=== PATIENT | male | born 1945 | race African-American/Black ===

== ENCOUNTER 2016-10-16 09:21 | Outpatient (CLI) | payer MEDICARE ==
--- NOTE | 2016-10-16 12:52 | Ultrasound Report ---
ULTRASOUND ABDOMEN LIMITED INDICATION: Chronic viral hepatitis. COMPARISON: 04/09/2016. FINDINGS: Right upper quadrant ultrasound suggests mild diffuse hepatic coarsening without definite focal suspicious lesion or biliary dilatation. Grossly normal hepatic contours. No gallstones, pericholecystic fluid or positive sonographic Odonnell's sign. Gallbladder wall thickness is 1.8 mm. Common bile duct is 2.5 mm. Pancreas obscured due to bowel gas. Normal imaged IVC and abdominal aorta. Nonhydronephrotic right kidney estimated at 10.3 x 4.5 x 4.9 cm with cortical thickness of 1 cm. CONCLUSION: No acute right upper quadrant sonographic abnormality, as described. Thank you for the opportunity to participate in this patient's care.
== END 2016-10-16 09:22 | disposition home or self-care (01) ==
LOC: US 09:21
PROVIDERS: ATTEND Internal Medicine Gastroenterology
DX: B18.1 Chronic viral hepatitis B without delta-agent (principal)
CPT/HCPCS: 76705

== ENCOUNTER 2017-04-14 06:57 | Outpatient (CLI) | payer MEDICARE ==
--- NOTE | 2017-04-14 07:59 | Ultrasound Report ---
ULTRASOUND ABDOMEN LIMITED INDICATION: Hepatitis B. COMPARISON: 10/16/2016. FINDINGS: Right upper quadrant ultrasound again suggests mild diffuse hepatic coarsening without definite focal suspicious lesions or biliary dilatation. Preserved hepatic contours. Subtle gallbladder sludge now not excluded. No gallstones, pericholecystic fluid or positive sonographic Odonnell's sign. Gallbladder wall thickness is 2.5 mm. CBD is 3.8 mm. Visualized pancreas unremarkable, though tail slightly obscured due to bowel gas. Normal imaged IVC and abdominal aorta. Nonhydronephrotic 10.5 x 4.6 x 4.6 cm right kidney with cortical thickness of 1.4 cm. Couple of small nonspecific renal medullary echogenicities. CONCLUSION: No acute right upper quadrant sonographic abnormality with slight gallbladder sludge and coarse liver, as described. Thank you for the opportunity to participate in this patient's care.
== END 2017-04-14 06:58 | disposition home or self-care (01) ==
LOC: US 06:57
PROVIDERS: ATTEND Internal Medicine Gastroenterology
DX: B19.10 Unspecified viral hepatitis B without hepatic coma (principal)
CPT/HCPCS: 76705

== ENCOUNTER 2017-10-16 07:33 | Outpatient (CLI) | payer MEDICARE ==
[2017-10-16] MEDS ORDERED: KINEVAC IV ONE (10:45)
--- NOTE | 2017-10-16 11:34 | Ultrasound Report ---
ULTRASOUND ABDOMEN LIMITED: TECHNIQUE: Transabdominal ultrasound with color Doppler interrogation. HISTORY: right upper quadrant abdominal pain, hepatitis B. COMPARISON: 04/14/17. FINDINGS: LIVER: The liver is normal size and contour. The liver parenchyma has a slightly coarse echotexture suggesting nonspecific parenchymal liver disease. No focal liver mass is identified. BILIARY SYSTEM: Trace sludge in the gallbladder. No shadowing gallstones, wall thickening or surrounding fluid. The CBD measures 3 mm. PANCREAS: Obscured by bowel gas. RIGHT KIDNEY: Normal. PROXIMAL AORTA: Normal. ASCITES: None. IMPRESSION: Slightly coarse echotexture of the liver consistent with nonspecific parenchymal liver disease. No advanced cirrhotic changes or liver mass identified. Trace sludge in the gallbladder.
--- NOTE | 2017-10-16 13:01 | Nuclear Medicine Report ---
HEPATOBILIARY SCAN: History: Right upper quadrant pain. Following the injection of the radionuclide, serial scanning was obtained over the right upper quadrant. Initial imaging of the liver demonstrates a relatively normal activity pattern. Progressive concentration of the radionuclide in the bile ducts, with filling of both the gallbladder and small bowel, is identified within a normal time period. The gallbladder ejection fraction is within normal limits measuring 66%. The patient reports the same pain following the infusion of CCK. IMPRESSION: Normal biliary system. Symptomatology as described.
== END 2017-10-16 07:34 | disposition home or self-care (01) ==
LOC: US 07:33
PROVIDERS: ATTEND Internal Medicine Gastroenterology
DX: B19.10 Unspecified viral hepatitis B without hepatic coma (principal); R10.11 Right upper quadrant pain
CPT/HCPCS: 76705; 78227; A9537

== ENCOUNTER 2017-11-26 07:16 | Outpatient (CLI) | payer MEDICARE ==
[2017-11-26 08:08] LABS: Blood Urea Nitrogen 14 mg/dL (9-20)
--- NOTE | 2017-11-26 15:25 | Magnetic Resonance Report ---
MRI ABDOMEN WITH AND WITHOUT CONTRAST INDICATION: Unspecified viral hepatitis. COMPARISON: 05/06/2016 CT. FINDINGS: Multiplanar and multisequence MRI of the abdomen attempted before and after 12 ml MultiHance intravenously, though extremely limited due to motion artifact. Of multiple tiny hepatic hypodensities on CT, an approximately 4 mm identified on MRI in the posterior right hepatic lobe, axial series 3, image 11, too small to accurately characterize, though may represent a cyst. Solid organ MRI evaluation however suboptimal. No large gallstones suspected. No significant biliary or pancreatic duct dilation. No ascites or definite significant adenopathy. Nonhydronephrotic kidneys. Nonaneurysmal abdominal aorta. Grossly normal bowel, marrow and muscle signal. Clear visualized lung bases, though right hemidiaphragm may be slightly elevated. Postcontrast evaluation inadequate. CONCLUSION: Extremely limited/suboptimal abdominal MRI, as described. If hepatic or pancreatic evaluation warranted clinically, dedicated hepatic or pancreatic protocol CT may offer better visualization, given the limitations. Thank you for the opportunity to participate in this patient's care.
== END 2017-11-26 07:17 | disposition home or self-care (01) ==
LOC: MRI 07:16
PROVIDERS: ATTEND Internal Medicine
DX: B19.10 Unspecified viral hepatitis B without hepatic coma (principal)
CPT/HCPCS: 36415; 74183; 82565; 84520; A9577

== ENCOUNTER 2019-02-15 09:46 | Inpatient (IN) | payer MEDICARE ==
[2019-02-15] MEDS ORDERED: NACL 0.9% 1000 ML 1,000 ML IV ONE (10:35)
--- NOTE | 2019-02-15 10:38 | Emergency Department Report ---
- General Chief complaint: Weakness Stated complaint: CANNOT MOVE Time Seen by Provider: 02/15/19 10:34 Source: patient Mode of arrival: Wheelchair Limitations: Language Barrier, Physical Limitation - History of Present Illness MD Complaint: generalized weakness - Related Data Allergies Allergy/AdvReac Type Severity Reaction Status Date / Time No Known Allergies Allergy Unverified 06/24/13 09:10 ED Review of Systems ROS: Stated complaint: CANNOT MOVE Other details as noted in HPI ED Past Medical Hx - Past Medical History Previous Medical History?: Yes Hx Diabetes: Yes - Surgical History Past Surgical History?: No Hx Appendectomy: No - Social History Smoking Status: Never Smoker Substance Use Type: None ED Physical Exam - General Limitations: Language Barrier, Physical Limitation ED Course Vital Signs 02/15/19 09:54 Temperature 98.2 F Pulse Rate 63 Respiratory 16 Rate Blood Pressure 175/72 [Left] O2 Sat by Pulse 97 Oximetry Critical care attestation.: If time is entered above; I have spent that time in minutes in the direct care of this critically ill patient, excluding procedure time. ED Disposition Condition: Stable
--- NOTE | 2019-02-15 11:06 | XRay Report ---
CHEST 1 VIEW INDICATION: Weakness. COMPARISON: None. FINDINGS: Support devices: None. Heart: Within normal limits. Pulmonary vascularity: Increased Lungs/Pleura: No acute air space or interstitial disease. No pleural effusion. Additional findings: None. IMPRESSION: Central vascular congestion but no other signs of CHF. No pneumonia. Signer Name: Owen Bell MD Signed: 02/15/2019 11:01 AM Workstation Name: [id number]
[2019-02-15 11:08] LABS: Eosinophils % (Auto) 0.3 % (0.0-4.3); Lymphocytes # (Auto) 1.4 K/mm3 (1.2-5.4); Mean Corpuscular HGB Conc 35 % (32-34); Mean Corpuscular Volume 98 fl (84-94); Monocytes # (Auto) 0.3 K/mm3 (0.0-0.8); Monocytes % (Auto) 7.3 % (0.0-7.3); Platelet Count 115 K/mm3 (140-440); Red Blood Count 4.09 M/mm3 (3.65-5.03); Red Cell Distribution Width 13.2 % (13.2-15.2)
[2019-02-15 11:18] LABS: INR 1.11 (0.87-1.13)
[2019-02-15 11:35] LABS: Alanine Aminotransferase 15 units/L (7-56); Albumin 4.1 g/dL (3.9-5); BUN/Creatinine Ratio 19; Blood Urea Nitrogen 15 mg/dL (9-20); Calcium 9.2 mg/dL (8.4-10.2); Hemolysis Index 7
[2019-02-15 12:31] LABS: Bilirubin,Urine NEG (Negative); Blood,Urine NEG (Negative); Color,Urine Straw (Yellow); Protein,Urine <15 mg/dL mg/dL (Negative); Urobilinogen,Urine < 2.0 mg/dL (<2.0); WBC,Urine < 1.0 /HPF (0.0-6.0)
[2019-02-15 12:38] LABS: Amphetamine Screen,Urine PRESUMPTIVE NEGATIVE; Benzodiazepines Screen,Urine PRESUMPTIVE NEGATIVE; Cannabinoid Screen,Urine PRESUMPTIVE NEGATIVE; Cocaine Screen,Urine PRESUMPTIVE NEGATIVE; Methadone Screen,Urine PRESUMPTIVE NEGATIVE; Opiate Screen,Urine PRESUMPTIVE NEGATIVE
--- NOTE | 2019-02-15 16:16 | Cat Scan Report ---
CT head/brain wo con INDICATION: Extremity weakness.. TECHNIQUE: Routine CT head without contrast. All CT scans at this location are performed using CT dos e reduction for ALARA by means of automated exposure control. COMPARISON: None. FINDINGS: BRAIN / INTRACRANIAL CONTENTS: No acute hemorrhage, mass effect, midline shift, or hydrocephalus. No appreciable acute large territorial or lacunar infarct. No chronic infarct. Age-commensurate ventricu lar and cisternal/sulcal prominence. ORBITS: Previous bilateral cataract surgery. No acute findings. SINUSES / MASTOIDS: No significant abnormality of visualized sinuses and mastoid air cells. ADDITIONAL FINDINGS: None. IMPRESSION: 1. No acute intracranial abnormality. Signer Name: Rio Turcios MD Signed: 02/15/2019 4:12 PM Workstation Name: [id number]
[2019-02-15] MEDS ORDERED: ZOFRAN IV PRN (21:36)
[2019-02-15] MEDS ORDERED: TYLENOL PO PRN (21:36)
[2019-02-15] MEDS ORDERED: SODIUM CHLORIDE FLUSH SYRINGE 10 ML IV PRN (21:36)
[2019-02-15] MEDS ORDERED: DILAUDID IV PRN (21:37)
[2019-02-15] MEDS ORDERED: NACL 0.9% 1000 ML 1,000 ML IV SCH (22:00)
[2019-02-15] MEDS: SODIUM CHLORIDE FLUSH SYRINGE 10 ML IV SCH (22:55)
[2019-02-15] MEDS: LOPRESSOR PO SCH (22:55)
[2019-02-15] MEDS: PEPCID PO SCH (22:55)
[2019-02-16 06:32] LABS: Alanine Aminotransferase 13 units/L (7-56); Albumin 3.9 g/dL (3.9-5); BUN/Creatinine Ratio 16; Blood Urea Nitrogen 13 mg/dL (9-20); Calcium 8.9 mg/dL (8.4-10.2); Hemolysis Index 4
--- NOTE | 2019-02-16 06:39 | Event Note ---
Date: 02/15/19 See H/p in reports Severe parkinsomism patient unable to get out of bed SNF suggested
--- NOTE | 2019-02-16 09:30 | History and Physical Report ---
CHIEF COMPLAINT: Unable to get out of bed and walk for 1 week. HISTORY OF PRESENT ILLNESS: A 73-year-old male with a history of diabetes, suddenly was unable to walk and unable to get out of bed. The patient is alert and oriented. The children had to carry him to the restroom. Also, assisting with ADLs. This is acute onset, but they did not seek any attention for 1 week. The patient does not have any weakness in the 4 extremities, and the patient is asking questions regarding his placement etc.Does not want to go to SNF PAST MEDICAL HISTORY: Significant for diabetes. PAST SURGICAL HISTORY: None. SOCIAL HISTORY: Does not smoke. FAMILY HISTORY: Hypertension. REVIEW OF SYSTEMS: Significant for severe weakness and difficulty getting out of bed to chair. PHYSICAL EXAMINATION: GENERAL: Elderly male, cooperative during examination. Alert and oriented. VITAL SIGNS: Blood pressure 140/87, temperature 98.2, pulse is 53, respirations 16. HEENT: Unremarkable, Parkinson-like facies. NECK: Supple, no lymphadenopathy, no thyromegaly. LUNGS: Clear to auscultation and percussion. Good air entry. CARDIOVASCULAR SYSTEM: S1, S2 heard. No gallop, no murmur, no rub. Apical impulse in left fifth intercostal space and midclavicular line. ABDOMEN: Soft and benign. No hepatosplenomegaly. No guarding, no rigidity. EXTREMITIES: Some rigidity present during extension and flexion. CENTRAL NERVOUS SYSTEM: Alert and oriented. States that he cannot walk, but does not want halfway at this point. No focal deficits. Power is 4+/5 power. DIAGNOSTIC DATA: Head CT was done. Head CT, no acute abnormality. EKG shows sinus bradycardia, heart rate of 57 per minute. Chest x-ray is significant for central vascular congestion, but no other signs of CHF, no pneumonia. LABORATORY DATA: White count is ____, H and H is 14 and 40.0, platelet count is 115, slightly low. Electrolytes are normal. Glucose is 114. A1c is 5.6. Well controlled. Drug screen is negative. ASSESSMENT AND PLAN: 1. Severe debility, etiology unclear. Parkinson's may be precipitating. 2. Parkinson's. The patient was not started on any Sinemet will defer to Neurology 3. Diabetes. Check A1c. Coverage for now. 4. Deep venous thrombosis prophylaxis, Lovenox 40 mg subcutaneous daily. 5. Social issues. The patient needs a placement for acute rehab versus subacute rehab. JOB# [id number] CHRISTOPHER/ANAMARIA DIEZ
[2019-02-16] MEDS ORDERED: SINEMET PO SCH (10:00)
[2019-02-16] MEDS: DULCOLAX PO SCH ×3 (10:11→21:24)
[2019-02-16] MEDS: LOPRESSOR PO SCH (10:11)
[2019-02-16] MEDS: PEPCID PO SCH ×2 (10:11→21:24)
[2019-02-16] MEDS: SODIUM CHLORIDE FLUSH SYRINGE 10 ML IV SCH ×2 (10:12→21:25)
[2019-02-16] MEDS ORDERED: PNEUMOVAX 23 IM ONE (12:00)
--- NOTE | 2019-02-16 14:24 | Progress Note ---
Assessment and Plan Assessment and plan: Patient is a 73 yo Samoan man who speaks some Khmer (son Ese helped) with a history of DM type 2 and PD who presents with inability to walk and unable to get out of bed. He lives with his son Ese but his son works and he needs home health care during his work hours. Patient's primary care provider has given him a referral to Neurologist but that appointment is not until Mar 08. Worsening PD suspected: consulted Neurology DM type 2: accucheck and SSI MRI brain pending Disposition: continue inpatient care, await Neurology evaluation History Interval history: Patient was seen and examined. Follow-up on current diagnosis of PD. No overnight events reported to me. Patient denies any chest pain, shortness breath, nausea/vomiting or severe headaches. Imaging, nursing note, chart, labs and old chart reviewed. Discussed with patient. Hospitalist Physical - Physical exam Narrative exam: Gen: thin and frail NAD, Awake, Alert, Orientated HEENT: NCAT, EOMI, PERRL, OP Clear Neck: supple, no adenopathy, no thyromegaly, no JVD CVS/Heart: RRR, normal S1S2, pulses present bilaterally Chest/Lungs: CTA B, Symmetrical chest expansion, good air entry bilaterally GI/Abdomen: soft, NTND, good bowel sounds, no guarding or rebound /Bladder: no suprapubic tenderness, no CVA or paraspinal tenderness Extermity/Skin: no c/c/e, no obvious rash MSK: FROM x 4 Neuro: CN 2-12 grossly intact, no new focal deficits,masked faces, shuffling gait, rigidity, tremor Psych: calm - Constitutional Vitals: Temp Pulse Resp BP Pulse Ox 97.6 F 53 L 16 140/75 99 02/16/19 12:01 02/16/19 12:01 02/16/19 12:01 02/16/19 12:01 02/16/19 12:01 Results - Labs CBC & Chem 7: 02/15/19 10:49 02/16/19 05:11 Labs: Laboratory Last Values WBC 3.5 K/mm3 (4.5-11.0) L 02/15/19 10:49 RBC 4.09 M/mm3 (3.65-5.03) 02/15/19 10:49 Hgb 14.0 gm/dl (11.8-15.2) 02/15/19 10:49 Hct 40.0 % (35.5-45.6) 02/15/19 10:49 MCV 98 fl (84-94) H 02/15/19 10:49 MCH 34 pg (28-32) H 02/15/19 10:49 MCHC 35 % (32-34) H 02/15/19 10:49 RDW 13.2 % (13.2-15.2) 02/15/19 10:49 Plt Count 115 K/mm3 (140-440) L 02/15/19 10:49 Lymph % (Auto) 40.0 % (13.4-35.0) H 02/15/19 10:49 [place] % (Auto) 7.3 % (0.0-7.3) 02/15/19 10:49 Eos % (Auto) 0.3 % (0.0-4.3) 02/15/19 10:49 Baso % (Auto) 1.0 % (0.0-1.8) 02/15/19 10:49 Lymph # 1.4 K/mm3 (1.2-5.4) 02/15/19 10:49 [place] # 0.3 K/mm3 (0.0-0.8) 02/15/19 10:49 Eos # 0.0 K/mm3 (0.0-0.4) 02/15/19 10:49 Baso # 0.0 K/mm3 (0.0-0.1) 02/15/19 10:49 Seg Neutrophils % 51.4 % (40.0-70.0) 02/15/19 10:49 Seg Neutrophils # 1.8 K/mm3 (1.8-7.7) 02/15/19 10:49 PT 14.0 Sec. (12.2-14.9) 02/15/19 10:49 INR 1.11 (0.87-1.13) 02/15/19 10:49 Sodium 141 mmol/L (137-145) 02/16/19 05:11 Potassium 3.8 mmol/L (3.6-5.0) 02/16/19 05:11 Chloride 104.1 mmol/L (98-107) 02/16/19 05:11 Carbon Dioxide 23 mmol/L (22-30) 02/16/19 05:11 18 mmol/L 02/16/19 05:11 BUN 13 mg/dL (9-20) 02/16/19 05:11 0.8 mg/dL (0.8-1.5) 02/16/19 05:11 Estimated GFR > 60 ml/min 02/16/19 05:11 16 % 02/16/19 05:11 Glucose 98 mg/dL (75-100) 02/16/19 05:11 5.6 % (4-6) 02/15/19 10:49 Calcium 8.9 mg/dL (8.4-10.2) 02/16/19 05:11 1.20 mg/dL (0.1-1.2) 02/16/19 05:11 AST 16 units/L (5-40) 02/16/19 05:11 ALT 13 units/L (7-56) 02/16/19 05:11 72 units/L (35-129) 02/16/19 05:11 6.6 g/dL (6.3-8.2) 02/16/19 05:11 3.9 g/dL (3.9-5) 02/16/19 05:11 1.4 % 02/16/19 05:11 TSH 1.450 mlU/mL (0.270-4.200) 02/15/19 10:49 Straw (Yellow) 02/15/19 Unknown Clear (Clear) 02/15/19 Unknown 7.0 (5.0-7.0) 02/15/19 Unknown Ur Specific Rule 1.011 (1.003-1.030) 02/15/19 Unknown <15 mg/dl mg/dL (Negative) 02/15/19 Unknown Neg mg/dL (Negative) 02/15/19 Unknown Neg mg/dL (Negative) 02/15/19 Unknown Neg (Negative) 02/15/19 Unknown Neg (Negative) 02/15/19 Unknown Neg (Negative) 02/15/19 Unknown < 2.0 mg/dL (<2.0) 02/15/19 Unknown Ur Leukocyte Esterase Neg (Negative) 02/15/19 Unknown < 1.0 /HPF (0.0-6.0) 02/15/19 Unknown 3.0 /HPF (0.0-6.0) 02/15/19 Unknown Presumptive negative 02/15/19 Unknown Presumptive negative 02/15/19 Unknown Ur Barbiturates Screen Presumptive negative 02/15/19 Unknown Ur Phencyclidine Scrn Presumptive negative 02/15/19 Unknown Ur Amphetamines Screen Presumptive negative 02/15/19 Unknown U Benzodiazepines Scrn Presumptive negative 02/15/19 Unknown Presumptive negative 02/15/19 Unknown U Marijuana (THC) Screen Presumptive negative 02/15/19 Unknown Disclamer 02/15/19 Unknown Plasma/Serum Alcohol < 0.01 % (0-0.07) 02/15/19 10:49 Active Medications - Current Medications Current Medications: Generic Name Dose Route Start Last Admin Trade Name Freq PRN Reason Stop Dose Admin Acetaminophen 650 mg 02/15/19 21:36 Tylenol PO Q4H PRN Pain MILD(1-3)/Fever >100.5/PANTOJA Bisacodyl 5 mg 02/16/19 08:00 02/16/19 13:41 Dulcolax PO 5 mg TID MJ Administration Carbidopa/Levodopa 1 each 02/16/19 10:00 02/16/19 10:11 Sinemet Er PO 1 each Q12HR MJ Administration Famotidine 20 mg 02/15/19 22:00 02/16/19 10:11 Pepcid PO 20 mg BID MJ Administration Hydromorphone HCl 0.5 mg 02/15/19 21:37 Dilaudid IV Q3H PRN Pain , Severe (7-10) Metoprolol Tartrate 12.5 mg 02/15/19 22:00 02/16/19 10:11 Lopressor PO 12.5 mg BID MJ Administration Miscellaneous Medication 0.5 mg 02/15/19 22:00 Entecavir [Entecavir] PO QDAY MJ Ondansetron HCl 4 mg 02/15/19 21:36 Zofran IV Q8H PRN Nausea And Vomiting Sodium Chloride 10 ml 02/15/19 22:00 02/16/19 10:12 Sodium Chloride Flush Syringe 10 Ml IV 10 ml BID MJ Administration Sodium Chloride 10 ml 02/15/19 21:36 Sodium Chloride Flush Syringe 10 Ml IV PRN PRN LINE FLUSH Nutrition/Malnutrition Assess - Dietary Evaluation Nutrition/Malnutrition Findings: Nutrition Notes Start: 02/16/19 14:00 Freq: Status: Active Protocol: Document 02/16/19 14:00 OVIDIO (Rec: 02/16/19 14:17 OVIDIO [email or web address]) Nutrition Notes Need for Assessment generated from: Low BMI Initial or Follow up Assessment Other Pertinent Diagnosis Weakness, Constipation Current Diet Regular Labs/Tests Reviewed Pertinent Medications Dulcolax, Sinemet Height 5 ft 4 in Weight 50.7 kg Usual Body Weight 52.7 kg [place] Body Weight (kg) 59.09 BMI 19.1 Intake Prior to Admission Fair Weight Status Underweight Subjective/Other Information Pt screened for low BMI. His son is at bedside. Pt says he has been very weak lately and constipated. Reports last BM three days ago. He is not eating much sec to constipation. Observed tremors in hands. Burn Absent Trauma Absent GI Symptoms Constipation #1 Nutrition Diagnosis Altered GI function Etiology constipation, ? neuromuscular dz As Evidenced by Signs and Symptoms pt last BM three days ago; only able to eat a little food at a time Is patient on ventilator? No Is Patient Ambulatory and/or Out of Bed No REE-([facility]-confined to bed) 1407.900 Kcal/Kg value to use for calculation 35 Approximate Energy Requirements Using 1775 kcal/Kg Calculation Used for Recommendations Kcal/kg Additional Notes Pro needs 1.2-1.5g/k-76g/ day Fluid needs 1ml/kcal Nutrition Intervention Change Diet Order: Continue current diet; pt's son to bring him desired foods to increase likelihood of adequate PO intake Goal #1 PO tolerance Goal #2 Improved bowel function Anticipated Discharge Needs: Unable to identify at this time Follow-Up By: 02/18/19 Additional Comments F/U: intakes, constipation, cause of weakness
--- NOTE | 2019-02-16 17:51 | Consultation ---
History of Present Illness Consult date: 02/16/19 Reason for Consult: Parkinsons disease Chief complaint: Parkinsons disease History of present illness: Patient is a 73 y/o man w/ a h/o DM and HBV. Patient presented yesterday with 1 week history of inability to get out of bed. Patient reports that he was in his usual state of health until June 2018, when he underwent b/l cataract surgery. Approximately 1 month after the surgery, he began to notice that his left hand would shake when trying to hold objects, however did not notice any resting tremors. His son began to notice that his walking had become slow about 2-3 months ago. Patient states that he then developed right hand shaking, and then developed b/l LE slowness in movement. He notes that he is able to walk, however it has become slower than normal. He has not lost motor function of any extremity. He denies any dysphagia. Patient has not had any falls. He was supposed to see a neurologist as outpatient, however over the past 1 week, as patient felt that symptoms were progressively getting worse, he decided to come to the ER. Past History Past Medical History: diabetes, other (HBV) Social history: no significant social history, lives with family Medications and Allergies Allergies Allergy/AdvReac Type Severity Reaction Status Date / Time No Known Allergies Allergy Unverified 06/24/13 09:10 Home Medications Medication Instructions Recorded Confirmed Last Taken Type Bisacodyl [Dulcolax] 5 mg PO TID 02/15/19 02/15/19 02/14/19 History Entecavir 0.5 mg PO QDAY 02/15/19 02/15/19 02/14/19 History Metoprolol [Lopressor] 12.5 mg PO BID 02/15/19 02/15/19 02/14/19 History raNITIdine HCl [Zantac] 150 mg PO QDAY 02/15/19 02/15/19 02/14/19 History Active Meds: Active Medications Acetaminophen (Tylenol) 650 mg PO Q4H PRN PRN Reason: Pain MILD(1-3)/Fever >100.5/PANTOJA Bisacodyl (Dulcolax) 5 mg PO TID [facility] Last Admin: 02/16/19 13:41 Dose: 5 mg Documented by: Carbidopa/Levodopa (Sinemet Er) 1 each PO Q12HR [facility] Last Admin: 02/16/19 10:11 Dose: 1 each Documented by: Famotidine (Pepcid) 20 mg PO BID [facility] Last Admin: 02/16/19 10:11 Dose: 20 mg Documented by: Hydromorphone HCl (Dilaudid) 0.5 mg IV Q3H PRN PRN Reason: Pain , Severe (7-10) Metoprolol Tartrate (Lopressor) 12.5 mg PO BID [facility] Last Admin: 02/16/19 10:11 Dose: 12.5 mg Documented by: Miscellaneous Medication (Entecavir [Entecavir]) 0.5 mg PO QDAY [facility] Ondansetron HCl (Zofran) 4 mg IV Q8H PRN PRN Reason: Nausea And Vomiting Sodium Chloride (Sodium Chloride Flush Syringe 10 Ml) 10 ml IV BID [facility] Last Admin: 02/16/19 10:12 Dose: 10 ml Documented by: Sodium Chloride (Sodium Chloride Flush Syringe 10 Ml) 10 ml IV PRN PRN PRN Reason: LINE FLUSH Review of Systems All systems: negative Neurological: tremors, gait dysfunction Physical Examination - Vital Signs Vital Signs: Vital Signs Temp Pulse Resp BP Pulse Ox 98.2 F 63 16 175/72 97 02/15/19 09:54 02/15/19 09:54 02/15/19 09:54 02/15/19 09:54 02/15/19 09:54 - Physical Exam Narrative exam: patient noted to have bradykinesia in all extremities, Cogwheel rigidity in all extremities. Also noted to have axial rigidity while transferring in bed, and while attempting to sit up. Noted to have shuffling gate. - Constitutional General appearance: comfortable - EENT EENT: Present: ATNC, PERRL, mucous membranes moist, hearing intact, vision intact - Respiratory Respiratory: Present: lungs clear, normal breath sounds - Cardiovascular Cardiovascular: Present: regular rate, normal S1, normal S2 Extremities: Present: no peripheral edema bilatateraly, no clubbing, cyanosis - Gastrointestinal Gastrointestinal: Present: normoactive bowel sounds, soft, non-tender - Integumentary Integumentary: Present: normal - Neurologic Cranial nerve examination: PERRL, EOMI, VFF, V1/V2/V3 grossly intact, face symmetric, tongue midline, intact shoulder shrug, other (mask-like facial expression) Speech examination: intact Sensorimotor examination: other Motor examination - right side: 5/5: biceps, triceps, wrist flexion, wrist extension, office professional, hip flexors, knee extensors, dorsiflexion, toe extension (EHL), plantarflexion Motor examination - left side: 55: biceps, triceps, wrist flexion, wrist extension, office professional, hip flexors, knee extensors, dorsiflexion, toe extension (EHL), plantarflexion Detailed sensory examination: intact, light touch Reflex and gait examination: other Reflexes: 2+: ankle, bicep, knee, tricep Cerebellar examination: other - Musculoskeletal Musculoskeletal: Present: no fluid collection, no pain - Psychiatric Psychiatric: Present: mood/affect appropriate Results - Laboratory Findings CBC and BMP: 02/15/19 10:49 02/16/19 05:11 Abnormal Lab Findings: Abnormal Labs 02/15/19 02/15/19 10:49 10:49 WBC 3.5 L MCV 98 H MCH 34 H MCHC 35 H Plt Count 115 L Lymph % (Auto) 40.0 H Glucose 114 H Assessment and Plan Patient is a 73 y/o man w/ a h/o DM and HBV. He p/w 6-month course of progressive movement disorder involving bradykinesia, shuffling gate, cogwheel rigidity, and axial rigidity. 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 As patient has a relatively faster course of symptom progression, I recommended for patient to be seen in movement disorder clinic at [place]. - Patient has agreed to be started on sinemet, and will start at dose of 10mg/100mg TID. - Patient will require to establish long-term outpatient care with neurologist for further management of illness. Will continue to follow patient. Sujit Arguello MD Neurology
--- NOTE | 2019-02-16 19:37 | Magnetic Resonance Report ---
MRI BRAIN WITHOUT CONTRAST INDICATION / CLINICAL INFORMATION: Stroke; Parkinson's disease. TECHNIQUE: Multiplanar, multisequence MR images of the brain were obtained. COMPARISON: CT scan from yesterday FINDINGS: BRAIN / INTRACRANIAL CONTENTS: No acute ischemia, acute hemorrhage, mass effect, midline shift, or hy drocephalus. No chronic infarct or atrophy. No significant white matter abnormality. Moderate cortic al involution is seen. Cerebral peduncles are normal. In the gradient echo images, I do not see findi ngs to suggest abnormal mineralization in this substantia nigra or in the putamen. Brainstem is saeed l. Few scattered deep hemispheric white lesions are seen. Extracerebral space is prominent bifrontall y symmetrically due to involution. CRANIOCERVICAL JUNCTION: No significant abnormality. VASCULAR FLOW-VOIDS: No significant abnormality. ORBITS: No significant abnormality of visualized orbits. 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 ADDITIONAL FINDINGS: None. IMPRESSION: I do not see acute infarction, hemorrhage or space taking lesion in the brain Moderate cortical involution Signer Name: Gerald Daniel MD Signed: 02/16/2019 7:33 PM Workstation Name: [id number]
[2019-02-16] MEDS: SINEMET PO SCH (21:24)
[2019-02-17 07:42] LABS: Hematocrit 38.8 % (35.5-45.6); Hemoglobin 13.6 gm/dl (11.8-15.2); Mean Corpuscular HGB Conc 35 % (32-34); Mean Corpuscular Volume 97 fl (84-94); Platelet Count 113 K/mm3 (140-440); Red Blood Count 3.98 M/mm3 (3.65-5.03); Red Cell Distribution Width 13.4 % (13.2-15.2)
[2019-02-17 08:06] LABS: BUN/Creatinine Ratio 16; Blood Urea Nitrogen 13 mg/dL (9-20); Calcium 8.9 mg/dL (8.4-10.2); Hemolysis Index 13
[2019-02-17] MEDS: PEPCID PO SCH ×2 (09:22→22:11)
[2019-02-17] MEDS: DULCOLAX PO SCH ×3 (09:22→22:11)
[2019-02-17] MEDS: SINEMET PO SCH ×3 (09:22→22:11)
[2019-02-17] MEDS: SODIUM CHLORIDE FLUSH SYRINGE 10 ML IV SCH ×2 (09:22→22:12)
--- NOTE | 2019-02-17 10:40 | Consultation ---
History of Present Illness Consult date: 02/17/19 Consult reason: other (pause) History of present illness: Patient is a 73 yo Montenegrin man who speaks some Swedish with a history of DM type 2 and PD who presented with inability to walk and unable to get out of bed. The patient was admitted for neurologic workup. During the hospital admission the patient was noted to have pauses - asymptomatic. Cardiology was consulted. Patient also states that he has been having right sided and susternal chest pain without radiation. Past History Past Medical History: diabetes, other (HBV) Social history: no significant social history, lives with family Medications and Allergies Allergies Allergy/AdvReac Type Severity Reaction Status Date / Time No Known Allergies Allergy Unverified 06/24/13 09:10 Home Medications Medication Instructions Recorded Confirmed Last Taken Type Bisacodyl [Dulcolax] 5 mg PO TID 02/15/19 02/15/19 02/14/19 History Entecavir 0.5 mg PO QDAY 02/15/19 02/15/19 02/14/19 History Metoprolol [Lopressor] 12.5 mg PO BID 02/15/19 02/15/19 02/14/19 History raNITIdine HCl [Zantac] 150 mg PO QDAY 02/15/19 02/15/19 02/14/19 History Active Meds: Active Medications Acetaminophen (Tylenol) 650 mg PO Q4H PRN PRN Reason: Pain MILD(1-3)/Fever >100.5/PANTOJA Bisacodyl (Dulcolax) 5 mg PO TID [facility] Last Admin: 02/17/19 09:22 Dose: 5 mg Documented by: Carbidopa/Levodopa (Sinemet) 1 each PO TID [facility] Last Admin: 02/17/19 09:22 Dose: 1 each Documented by: Famotidine (Pepcid) 20 mg PO BID [facility] Last Admin: 02/17/19 09:22 Dose: 20 mg Documented by: Hydromorphone HCl (Dilaudid) 0.5 mg IV Q3H PRN PRN Reason: Pain , Severe (7-10) Miscellaneous Medication (Entecavir [Entecavir]) 0.5 mg PO QDAY [facility] Ondansetron HCl (Zofran) 4 mg IV Q8H PRN PRN Reason: Nausea And Vomiting Sodium Chloride (Sodium Chloride Flush Syringe 10 Ml) 10 ml IV BID MJ Last Admin: 02/17/19 09:22 Dose: 10 ml Documented by: Sodium Chloride (Sodium Chloride Flush Syringe 10 Ml) 10 ml IV PRN PRN PRN Reason: LINE FLUSH Physical Examination Vital Signs Temp Pulse Resp BP Pulse Ox 98.2 F 63 16 175/72 97 02/15/19 09:54 02/15/19 09:54 02/15/19 09:54 02/15/19 09:54 02/15/19 09:54 General appearance: no acute distress HEENT: Positive: PERRL Neck: Positive: neck supple Cardiac: Positive: Reg Rate and Rhythm, irregularly irregular Lungs: Positive: Normal Exam Abdomen: Positive: Unremarkable, Soft Extremities: Present: normal Results 02/17/19 06:45 02/17/19 06:45 CBC 02/17/19 Range/Units 06:45 WBC 4.8 (4.5-11.0) K/mm3 RBC 3.98 (3.65-5.03) M/mm3 Hgb 13.6 (11.8-15.2) gm/dl Hct 38.8 (35.5-45.6) % Plt Count 113 L (140-440) K/mm3 Comprehensive Metabolic Panel 02/17/19 Range/Units 06:45 Sodium 139 (137-145) mmol/L Potassium 3.7 (3.6-5.0) mmol/L Chloride 101.0 (98-107) mmol/L Carbon Dioxide 26 (22-30) mmol/L BUN 13 (9-20) mg/dL Creatinine 0.8 (0.8-1.5) mg/dL Glucose 102 H (75-100) mg/dL Calcium 8.9 (8.4-10.2) mg/dL EKG interpretations - Telemetry EKG Rhythm: Sinus Rhythm Assessment and Plan Worsening PD suspected: consulted Neurology DM type 2: accucheck and SSI 2.1 second pause: Checke echo. Check TSH and FT4. Replete electrolytes as needed. hold all AV geetha blockers. monitor telemetry. Chest pain - lexiscan tomorrow
--- NOTE | 2019-02-17 18:23 | Progress Note ---
Assessment and Plan Assessment and plan: Patient is a 73 yo [place] man who speaks some Yakut (son Ese helped) with a history of DM type 2, hepatitis B on Entecavir and suspected PD who presents with inability to walk and unable to get out of bed. He lives with his son Ese but his son works and he needs home health care during his work hours. Patient has been given him a referral to Neurologist but that appointment is not until Mar 08. 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 Follow-up on current diagnosis of PD. No overnight events reported to me. Patient denies any chest pain, shortness breath, nausea/vomiting or severe headaches. Imaging, nursing note, chart, labs and old chart reviewed. Discussed with patient. Hospitalist Physical - Physical exam Narrative exam: Gen: thin and frail NAD, Awake, Alert, Orientated HEENT: NCAT, EOMI, PERRL, OP Clear Neck: supple, no adenopathy, no thyromegaly, no JVD CVS/Heart: RRR, normal S1S2, pulses present bilaterally Chest/Lungs: CTA B, Symmetrical chest expansion, good air entry bilaterally GI/Abdomen: soft, NTND, good bowel sounds, no guarding or rebound /Bladder: no suprapubic tenderness, no CVA or paraspinal tenderness Extermity/Skin: no c/c/e, no obvious rash MSK: FROM x 4 Neuro: CN 2-12 grossly intact, no new focal deficits,masked faces, shuffling gait, rigidity, tremor Psych: calm - Constitutional Vitals: Temp Pulse Resp BP Pulse Ox 97.6 F 68 18 136/72 98 02/17/19 12:03 02/17/19 12:03 02/17/19 12:03 02/17/19 12:03 02/17/19 12:03 General appearance: Present: no acute distress Results - Labs CBC & Chem 7: 02/17/19 06:45 02/17/19 06:45 Labs: Laboratory Last Values WBC 4.8 K/mm3 (4.5-11.0) 02/17/19 06:45 RBC 3.98 M/mm3 (3.65-5.03) 02/17/19 06:45 Hgb 13.6 gm/dl (11.8-15.2) 02/17/19 06:45 Hct 38.8 % (35.5-45.6) 02/17/19 06:45 MCV 97 fl (84-94) H 02/17/19 06:45 MCH 34 pg (28-32) H 02/17/19 06:45 MCHC 35 % (32-34) H 02/17/19 06:45 RDW 13.4 % (13.2-15.2) 02/17/19 06:45 Plt Count 113 K/mm3 (140-440) L 02/17/19 06:45 Lymph % (Auto) 40.0 % (13.4-35.0) H 02/15/19 10:49 [place] % (Auto) 7.3 % (0.0-7.3) 02/15/19 10:49 Eos % (Auto) 0.3 % (0.0-4.3) 02/15/19 10:49 Baso % (Auto) 1.0 % (0.0-1.8) 02/15/19 10:49 Lymph # 1.4 K/mm3 (1.2-5.4) 02/15/19 10:49 [place] # 0.3 K/mm3 (0.0-0.8) 02/15/19 10:49 Eos # 0.0 K/mm3 (0.0-0.4) 02/15/19 10:49 Baso # 0.0 K/mm3 (0.0-0.1) 02/15/19 10:49 Seg Neutrophils % 51.4 % (40.0-70.0) 02/15/19 10:49 Seg Neutrophils # 1.8 K/mm3 (1.8-7.7) 02/15/19 10:49 PT 14.0 Sec. (12.2-14.9) 02/15/19 10:49 INR 1.11 (0.87-1.13) 02/15/19 10:49 Sodium 139 mmol/L (137-145) 02/17/19 06:45 Potassium 3.7 mmol/L (3.6-5.0) 02/17/19 06:45 Chloride 101.0 mmol/L (98-107) 02/17/19 06:45 Carbon Dioxide 26 mmol/L (22-30) 02/17/19 06:45 16 mmol/L 02/17/19 06:45 BUN 13 mg/dL (9-20) 02/17/19 06:45 0.8 mg/dL (0.8-1.5) 02/17/19 06:45 Estimated GFR > 60 ml/min 02/17/19 06:45 16 % 02/17/19 06:45 Glucose 102 mg/dL (75-100) H 02/17/19 06:45 5.6 % (4-6) 02/15/19 10:49 Calcium 8.9 mg/dL (8.4-10.2) 02/17/19 06:45 Magnesium 2.00 mg/dL (1.7-2.3) 02/17/19 06:45 1.20 mg/dL (0.1-1.2) 02/16/19 05:11 AST 16 units/L (5-40) 02/16/19 05:11 ALT 13 units/L (7-56) 02/16/19 05:11 72 units/L (35-129) 02/16/19 05:11 6.6 g/dL (6.3-8.2) 02/16/19 05:11 3.9 g/dL (3.9-5) 02/16/19 05:11 1.4 % 02/16/19 05:11 TSH 2.110 mlU/mL (0.270-4.200) 02/17/19 12:44 Free T4 1.06 ng/dL (0.76-1.46) 02/17/19 12:44 Straw (Yellow) 02/15/19 Unknown Clear (Clear) 02/15/19 Unknown 7.0 (5.0-7.0) 02/15/19 Unknown Ur Specific [place] 1.011 (1.003-1.030) 02/15/19 Unknown <15 mg/dl mg/dL (Negative) 02/15/19 Unknown Neg mg/dL (Negative) 02/15/19 Unknown Neg mg/dL (Negative) 02/15/19 Unknown Neg (Negative) 02/15/19 Unknown Neg (Negative) 02/15/19 Unknown Neg (Negative) 02/15/19 Unknown < 2.0 mg/dL (<2.0) 02/15/19 Unknown Ur Leukocyte Esterase Neg (Negative) 02/15/19 Unknown < 1.0 /HPF (0.0-6.0) 02/15/19 Unknown 3.0 /HPF (0.0-6.0) 02/15/19 Unknown Presumptive negative 02/15/19 Unknown Presumptive negative 02/15/19 Unknown Ur Barbiturates Screen Presumptive negative 02/15/19 Unknown Ur Phencyclidine Scrn Presumptive negative 02/15/19 Unknown Ur Amphetamines Screen Presumptive negative 02/15/19 Unknown U Benzodiazepines Scrn Presumptive negative 02/15/19 Unknown Presumptive negative 02/15/19 Unknown U Marijuana (THC) Screen Presumptive negative 02/15/19 Unknown Disclamer 02/15/19 Unknown Plasma/Serum Alcohol < 0.01 % (0-0.07) 02/15/19 10:49 Active Medications - Current Medications Current Medications: Generic Name Dose Route Start Last Admin Trade Name Freq PRN Reason Stop Dose Admin Acetaminophen 650 mg 02/15/19 21:36 Tylenol PO Q4H PRN Pain MILD(1-3)/Fever >100.5/PANTOJA Bisacodyl 5 mg 02/16/19 08:00 02/17/19 16:31 Dulcolax PO 5 mg TID MJ Administration Carbidopa/Levodopa 1 each 02/16/19 20:00 02/17/19 16:29 Sinemet PO 1 each TID MJ Administration Famotidine 20 mg 02/15/19 22:00 02/17/19 09:22 Pepcid PO 20 mg BID MJ Administration Hydromorphone HCl 0.5 mg 02/15/19 21:37 Dilaudid IV Q3H PRN Pain , Severe (7-10) Miscellaneous Medication 0.5 mg 02/17/19 20:00 Entecavir [Entecavir] PO QDAY MJ Ondansetron HCl 4 mg 02/15/19 21:36 Zofran IV Q8H PRN Nausea And Vomiting Sodium Chloride 10 ml 02/15/19 22:00 02/17/19 09:22 Sodium Chloride Flush Syringe 10 Ml IV 10 ml BID MJ Administration Sodium Chloride 10 ml 02/15/19 21:36 Sodium Chloride Flush Syringe 10 Ml IV PRN PRN LINE FLUSH Nutrition/Malnutrition Assess - Dietary Evaluation Nutrition/Malnutrition Findings: Nutrition Notes Start: 02/16/19 14:00 Freq: Status: Active Protocol: Document 02/16/19 14:00 OVIDIO (Rec: 02/16/19 14:17 OVIDIO [email or web address]) Nutrition Notes Need for Assessment generated from: Low BMI Initial or Follow up Assessment Other Pertinent Diagnosis Weakness, Constipation Current Diet Regular Labs/Tests Reviewed Pertinent Medications Dulcolax, Sinemet Height 5 ft 4 in Weight 50.7 kg Usual Body Weight 52.7 kg [place] Body Weight (kg) 59.09 BMI 19.1 Intake Prior to Admission Fair Weight Status Underweight Subjective/Other Information Pt screened for low BMI. His son is at bedside. Pt says he has been very weak lately and constipated. Reports last BM three days ago. He is not eating much sec to constipation. Observed tremors in hands. Burn Absent Trauma Absent GI Symptoms Constipation #1 Nutrition Diagnosis Altered GI function Etiology constipation, ? neuromuscular dz As Evidenced by Signs and Symptoms pt last BM three days ago; only able to eat a little food at a time Is patient on ventilator? No Is Patient Ambulatory and/or Out of Bed No REE-([facility]-confined to bed) 1407.900 Kcal/Kg value to use for calculation 35 Approximate Energy Requirements Using 1775 kcal/Kg Calculation Used for Recommendations Kcal/kg Additional Notes Pro needs 1.2-1.5g/k-76g/ day Fluid needs 1ml/kcal Nutrition Intervention Change Diet Order: Continue current diet; pt's son to bring him desired foods to increase likelihood of adequate PO intake Goal #1 PO tolerance Goal #2 Improved bowel function Anticipated Discharge Needs: Unable to identify at this time Follow-Up By: 02/18/19 Additional Comments F/U: intakes, constipation, cause of weakness
--- NOTE | 2019-02-17 20:02 | Progress Note ---
Assessment and Plan Patient is a 73 y/o man w/ a h/o DM and HBV. He p/w 6-month course of progressive movement disorder involving bradykinesia, shuffling gate, cogwheel rigidity, and axial rigidity. 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 Plan: 1. 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 As patient has a relatively faster course of symptom progression, I recommended for patient to be seen in movement disorder clinic at [place]. - Cont. sinement at dose of 10mg/100mg TID. - Patient will require to establish long-term outpatient care with neurologist for further management of illness. -Recommend for patient to follow up with neurology outpatient. - Will sign off. Please call with any questions. Sujit Arguello MD Neurology Subjective Date of service: 02/17/19 Principal diagnosis: Parkinsons disease Interval history: No acute events overnight. Objective - Exam Narrative Exam: patient noted to have bradykinesia in all extremities, Cogwheel rigidity in all extremities. Also noted to have axial rigidity while transferring in bed, and while attempting to sit up. Noted to have shuffling gate. - Vital Sign Vital Signs - 12hr 02/17/19 12:03 Temperature 97.6 F Pulse Rate 68 Respiratory 18 Rate Blood Pressure 136/72 O2 Sat by Pulse 98 Oximetry - General Apperance Constitutional: comfortable - EENT EENT: ATNC, PERRL, mucous membranes moist, hearing intact, vision intact - Respiratory Respiratory: lungs clear, normal breath sounds - Cardiovascular Cardiovascular: regular rate, normal S1, normal S2 Extremities: no peripheral edema bilat, no clubbing, cyanosis - Gastrointestinal Gastrointestinal: normoactive bowel sounds, soft, non-tender - Integumentary Integumentary: normal - Neurologic Cranial nerve examination: PERRL, EOMI, VFF, V1/V2/V3 grossly intact, face symmetric, tongue midline, intact shoulder shrug Speech examination: intact, other (hypophonia noted) Detailed motor examination: full strength in all martha Motor examination - right side: 5/5: biceps, triceps, wrist flexion, wrist extension, [employer], hip flexors, knee extensors, dorsiflexion, toe extension (EHL), plantarflexion Motor examination - left side: 5/5: biceps, triceps, wrist flexion, wrist extension, [employer], hip flexors, knee extensors, dorsiflexion, toe extension (EHL), plantarflexion Detailed sensory examination: intact, light touch Reflexes: 2+: ankle, bicep, knee, tricep Cerebellar examination: other (b/l intact to FTN and HTS) - Musculoskeletal Musculoskeletal: no fluid collection, no pain - Psychiatric Psychiatric: mood/affect appropriate - Laboratory Findings CBC and BMP: 02/17/19 06:45 02/17/19 06:45 Abnormal Lab Findings: Abnormal Labs 02/15/19 02/15/19 02/17/19 10:49 10:49 06:45 WBC 3.5 L MCV 98 H 97 H MCH 34 H 34 H MCHC 35 H 35 H Plt Count 115 L 113 L Lymph % (Auto) 40.0 H Glucose 114 H 02/17/19 06:45 WBC MCV MCH MCHC Plt Count Lymph % (Auto) Glucose 102 H
[2019-02-17] MEDS: NON-FORMULARY (Entecavir [Entecavir] 0.5 MG) PO SCH (22:11)
[2019-02-18] MEDS ORDERED: LEXISCAN IV ONE (07:03)
[2019-02-18] MEDS: SINEMET PO SCH ×2 (11:19→16:00)
[2019-02-18] MEDS: NON-FORMULARY (Entecavir [Entecavir] 0.5 MG) PO SCH (11:20)
[2019-02-18] MEDS: PEPCID PO SCH (11:21)
[2019-02-18] MEDS: DULCOLAX PO SCH ×2 (11:25→16:01)
[2019-02-18] MEDS: SODIUM CHLORIDE FLUSH SYRINGE 10 ML IV SCH (11:25)
[2019-02-18 12:08] VITALS: BP 128/80
--- NOTE | 2019-02-18 14:23 | Progress Note ---
Assessment and Plan - Patient Problems (1) Bradycardia Current Visit: Yes Status: Acute Plan to address problem: Asymptomatic pauses on telemetry, TSH is normal. We will continue to hold metoprolol and other AV geetha blocking agents, I will await thallium stress test results, if no further bradycardia, patient may benefit from outpatient event monitor. Subjective Date of service: 02/18/19 Principal diagnosis: Parkinsons disease Interval history: Patient underwent Lexiscan thallium stress test today, results are pending. It will be recalled that he presented with motor weakness and ataxia, all in this setting off a documented history of Parkinson's disease. Cardiac consultation was requested for the finding of asymptomatic pauses on telemetry. The patient was on metoprolol therapy at home, which has not been continued. The TSH level was normal at 2.1. Echocardiogram already done shows normal left ventricular systolic function, ejection fraction 55-60%. Objective Vital Signs Temp Pulse Resp BP BP Pulse Ox 02/18/19 12:06 97.8 F 78 18 128/80 100 02/18/19 10:08 120/65 02/18/19 10:07 108/58 02/18/19 10:06 136/61 02/18/19 08:56 154/71 02/18/19 08:14 97.6 F 64 18 135/74 100 02/18/19 04:34 97.5 F L 57 L 18 132/75 98 02/17/19 23:34 97.4 F L 54 L 18 136/72 96 02/17/19 20:50 54 L 02/17/19 19:47 98.0 F 61 18 150/80 99 02/17/19 16:46 98.0 F 68 18 139/77 98 - Physical Examination General: No Apparent Distress HEENT: Positive: PERRL Neck: Positive: neck supple Cardiac: Positive: Reg Rate and Rhythm Lungs: Positive: clear to auscultation Neuro: Positive: Grossly Intact Abdomen: Positive: Unremarkable, Soft Skin: Positive: Clear Extremities: Absent: edema
--- NOTE | 2019-02-18 15:18 | Discharge Summary ---
Providers - Providers Date of Admission: 02/16/19 14:29 Date of discharge: 02/18/19 Attending physician: NATALIE FIORE 02/15/19 21:37 Consult to Physician [CONS] Routine Comment: Consulting Provider: RIYA CERVANTES Physician Instructions: Reason For Exam: Parkinsons and movement disorder 02/15/19 21:51 Consult to Case Management [CONS] Routine Services Needed at Discharge: Home Health Services Custodial Aide Notified:: mattress spring encaser Comment:: SNF placement 02/15/19 22:13 Physical Therapy Evaluation and Treat [CONS] Routine Comment: Reason For Exam: severe debility 02/16/19 18:26 Consult to Physician [CONS] Routine Comment: Consulting Provider: GERMAIN DAVENPORT Physician Instructions: Reason For Exam: cardiac pause Primary care physician: CUSTOMER SALES ADVISOR Hospitalization Condition: Stable Hospital course: Patient is a 73 yo [place]ian man who speaks some Syriac (son Ese corral) with a history of DM type 2, hepatitis B on Entecavir and suspected PD who presents with inability to walk and unable to get out of bed. He lives with his son Ese but his son works and he needs home health care during his work hours. Patient has been given him an appointment to Neurologist, Dr. Hidalgo on Mar 08. 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: consulted Neurology, input noted, started Sinemet, Physical therapy needs home referral Ruled out CVA DM type 2: accucheck and SSI Cardiac pause/arrest for 2.1s: Cardiology consulted, input noted, stopped BBlocker, reviewed ECHO, TSH pending, Stress test in [place] Hepatitis B: continue home medication D/C if stress test is negative Disposition: DC/[place]-06 HOME UNDER HOME [facility] Time spent for discharge: 34 minutes Core Measure Documentation - Palliative Care Palliative Care/ Comfort Measures: Not Applicable - Core Measures Any of the following diagnoses?: none - VTE Discharge Requirements Deep Vein Thrombosis/Pulmonary Embolism Present on Admission: No Has pt received <5 days of overlap therapy or INR<2.0: No Anticoagulant overlap therapy prescribed at discharge: No Contraindication No Overlap Therapy order at DC: Not Indicated Exam - Physical Exam Narrative exam: Gen: thin and frail NAD, Awake, Alert, Orientated HEENT: NCAT, EOMI, PERRL, OP Clear Neck: supple, no adenopathy, no thyromegaly, no JVD CVS/Heart: RRR, normal S1S2, pulses present bilaterally Chest/Lungs: CTA B, Symmetrical chest expansion, good air entry bilaterally GI/Abdomen: soft, NTND, good bowel sounds, no guarding or rebound /Bladder: no suprapubic tenderness, no CVA or paraspinal tenderness Extermity/Skin: no c/c/e, no obvious rash MSK: FROM x 4 Neuro: CN 2-12 grossly intact, no new focal deficits,masked faces, shuffling gait, rigidity, tremor Psych: calm - Constitutional Vitals: Temp Pulse Resp BP Pulse Ox 97.8 F 78 18 128/80 100 02/18/19 12:06 02/18/19 12:06 02/18/19 12:06 02/18/19 12:06 02/18/19 12:06 Plan Activity: other (no strenous activity unless cleared by PCP) Diet: regular Additional Instructions: DO NOT take metoprolol Follow up with: LAINE SIMPSON MD [Primary Care Provider] - 7 Days NAKIA HIDALGO MD [Referring] - 03/08/19 Prescriptions: Carbidopa/Levodopa 10-100 [Sinemet 10/100] 1 each PO TID #90 tablet
--- NOTE | 2019-02-19 00:51 | Treadmill Report ---
THALLIUM STRESS TEST LEFT VENTRICLE: Left ventricular chamber size is within normal spread. Perfusion study demonstrates a small fixed basal inferior defect, no significant reversibility on the resting study. Gated analysis demonstrates well preserved left ventricular systolic function, ejection fraction greater than 70%. CONCLUSION: Small fixed basal inferior defect may represent diaphragmatic attenuation artifact. Cannot exclude a small prior basal inferior infarct. There is no reversible ischemia demonstrated on this study. Clinical correlation is recommended. [facility]# [id number] CA/NTS
== END 2019-02-18 18:00 | disposition home health service (06) | DRG 56 ==
LOC: ED 09:46 → 4A 17:42 → OBSVTOIN 02-16 14:29
PROVIDERS: ADMIT Internal Medicine; ATTEND Internal Medicine
PROC: 3E0234Z Introduction of Serum, Toxoid and Vaccine into Muscle, Percutaneous Approach (ICD-10-PCS; principal; 2019-02-16)
DX: G20 Parkinson's disease (principal); I46.9 Cardiac arrest, cause unspecified; B19.10 Unspecified viral hepatitis B without hepatic coma; G23.1 Progressive supranuclear ophthalmoplegia [Steele-Richardson-Olszewski]; R53.81 Other malaise; E11.8 Type 2 diabetes mellitus with unspecified complications; R00.1 Bradycardia, unspecified; Z79.899 Other long term (current) drug therapy; Z82.49 Family history of ischemic heart disease and other diseases of the circulatory system; Z23 Encounter for immunization
CPT/HCPCS: 36415; 70450; 70551; 71045; 78452; 80048; 80053; 80307; 80320; 81001; 82962; 83036; 83735; 84439; 84443; 84484; 85025; 85027; 85610; 90732; 93005; 93010; 93017; 93306; 96365; 96372; G0378; A9502; G0480; J2785; J7030